=== PATIENT | female | born 1980 | race Caucasian/White ===

== ENCOUNTER 2020-07-01 18:58 | Emergency (ER) | payer BC ==
[~2020-07-01] VITALS: Ht 177.8 cm; Wt 79.5 kg
[2020-07-01] MEDS ORDERED: LACTATED RINGERS 1,000 ML IV ONE (19:30)
[2020-07-01] MEDS ORDERED: PANTOPRAZOLE 40 MG (PROTONIX) VIAL IV ONE (19:30)
[2020-07-01] MEDS ORDERED: fentaNYL INJ 100 MCG/2 ML AMP IVP ONE (19:30)
[2020-07-01] MEDS ORDERED: ONDANSETRON 4 MG/2 ML (SDV) Z0FRAN IVP ONE (19:30)
[2020-07-01 19:32] LABS: BASOPHILS # (AUTO) 0.1 10^3/uL (0.0-0.1); BASOPHILS % (AUTO) 1 % (0-10); EOSINOPHILS # (AUTO) 0.9 10^3/uL (0.0-0.3); EOSINOPHILS % (AUTO) 9 % (0-10); HEMATOCRIT 40 % (35-52); HEMOGLOBIN 13.3 g/dL (11.5-16.0); LYMPHOCYTES # (AUTO) 3.4 10^3/uL (1.0-4.0); LYMPHOCYTES % (AUTO) 33 % (12-44); MEAN CORPUSCULAR HEMOGLOBIN 31 pg (25-34); MEAN CORPUSCULAR HGB CONC 34 g/dL (32-36); MEAN CORPUSCULAR VOLUME 91 fL (80-99); MEAN PLATELET VOLUME 9.4 fL (9.0-12.2); MONOCYTES # (AUTO) 0.7 10^3/uL (0.0-1.0); MONOCYTES % (AUTO) 6 % (0-12); NEUTROPHILS # (AUTO) 5.2 10^3/uL (1.8-7.8); NEUTROPHILS % (AUTO) 51 % (42-75); PLATELET COUNT 315 10^3/uL (130-400); WHITE BLOOD COUNT 10.3 10^3/uL (4.3-11.0)
--- NOTE | 2020-07-01 19:34 | ED Abdominal Pain ---
General Chief Complaint: Abdominal/GI Problems Stated Complaint: ABD PAIN Source of Information: Patient Exam Limitations: No Limitations NPO Since: 1700 (DAVID MURILLO STUDENT) History of Present Illness Date Seen by Provider: July 01, 2020 Time Seen by Provider: 19:15 Initial Comments Pt presented to ED via private conveyance with and daughter at side with complaint of abd pain. She states it started at about 3:30 this afternoon while she was driving. She ate a sandwich at 11AM and some noodles about 2-3hrs prior to arriving, which she subsequently vomited. She denies prior history of similar symptoms. PSH of hysterectomy with unilateral oopherectomy. PMH GERD. States her pain is epigastric, radiates to her back, 8/10, and feels like she's being punched. She has been nauseated with intermittent vomiting since the pain began. She denies other symptoms of chest pain, SOB, fevers, chills. Timing/Duration: 4-6 Hours Severity/Quality: Severe, Aching, Throbbing Location: Epigastric Radiation: Back Activities at Onset: Other (driving) Modifying Factors: Improves With Other (more comfortable when leaning forward) Associated Symptoms: No Chest Pain, No Fever/Chills, No Headache; Nausea/Vomiting (DAVID MURILLO STUDENT) Initial Comments She did have a beer last night and has an occasional drink but no history of pancreatitis. She has a history of kidney stones. She says this feels entirely different. (ISSAC FAGAN) Allergies and Home Medications Allergies Coded Allergies: No Known Drug Allergies (Unverified , 07/01/20) Patient Home Medication List Home Medication List Reviewed: Yes (DAVID MURILLO STUDENT) Home Medication List Reviewed: Yes (ISSAC FAGAN) Review of Systems Review of Systems Constitutional: No chills, No fever EENTM: No Blurred Vision, No Double Vision, No Eye Pain, No Ear Pain Respiratory: Denies Cough, Denies Shortness of Air Cardiovascular: Denies Chest Pain, Denies Edema, Denies Lightheadedness Gastrointestinal: Abdominal Pain; Denies Constipated, Denies Diarrhea; Nausea, Vomiting Genitourinary: Denies Frequency, Denies Hematuria Musculoskeletal: No back pain, No joint pain, No muscle pain Skin: No lesions, No rash Psychiatric/Neurological: Denies Headache, Denies Numbness, Denies Paresthesia, Denies Tingling, Denies Weakness (DAVID MURILLO) Constitutional: No chills, No diaphoresis EENTM: No Blurred Vision, No Double Vision Respiratory: Denies Cough, Denies Shortness of Air Gastrointestinal: Denies Abdomen Distended; Abdominal Pain, Nausea, Vomiting Genitourinary: Denies Burning, Denies Discharge Musculoskeletal: No back pain, No joint pain (ISSAC FAGAN) All Other Systems Reviewed Negative Unless Noted: Yes (DAVID MURILLO) Negative Unless Noted: Yes (ISSAC FAGAN) Past Afldlrd-Jpwvxk-Ichrwe Hx Past Med/Social Hx: Reviewed Nursing Past Med/Soc Hx (DAVID MURILLO) Patient Social History Alcohol Use: Occasionally Uses Alcohol Beverage of Choice: Beer Smoking Status: Current Everyday Smoker Type Used: Cigarettes (1/2ppd for 1 year) Alcohol Use?: Yes (DAVID MURILLO) Physical Exam Vital Signs Vital Signs - First Documented 07/01/20 19:11 Temp 36.5 Pulse 90 Resp 18 B/P (MAP) 121/97 (105) Pulse Ox 96 O2 Delivery Room Air (ISSAC FAGAN) Vital Signs Capillary Refill : (DAVID MURILLO) Height/Weight/BMI Height: '" Weight: lbs. oz. kg; BMI Method: General Appearance: WD/WN, moderate distress HEENT: PERRL/EOMI, normal ENT inspection Neck: non-tender, full range of motion, supple, normal inspection Respiratory: chest non-tender, lungs clear, normal breath sounds, no respiratory distress, no accessory muscle use Cardiovascular: normal peripheral pulses, regular rate, rhythm, no edema, no murmur Peripheral Pulses: 2+ Radial Pulses (R), 2+ Radial Pulses (L) Gastrointestinal: normal bowel sounds, soft; No distended, No guarding, No rebound; tenderness (mild tenderness epigastric) Rectal: deferred Extremities: normal range of motion, non-tender, normal inspection, normal capillary refill Back: normal inspection, no CVA tenderness, no vertebral tenderness Neurologic/Psychiatric: no motor/sensory deficits, alert, normal mood/affect, oriented x 3 Skin: normal color, warm/dry Lymphatic: no adenopathy (LIDIA,DAVID MED STUDENT) General Appearance: WD/WN, mild distress HEENT: PERRL/EOMI, pharynx normal Neck: full range of motion, normal inspection Respiratory: lungs clear, normal breath sounds, no respiratory distress, no accessory muscle use Cardiovascular: normal peripheral pulses, regular rate, rhythm (RYLAN,ISSAC J) Progress/Results/Core Measures Results/Orders Lab Results Laboratory Tests Test 07/01/20 19:15 07/01/20 19:50 Range/Units White Blood Count 10.3 4.3-11.0 10^3/uL Red Blood Count 4.32 3.80-5.11 10^6/uL Hemoglobin 13.3 11.5-16.0 g/dL Hematocrit 40 35-52 % Mean Corpuscular Volume 91 80-99 fL Mean Corpuscular Hemoglobin 31 25-34 pg Mean Corpuscular Hemoglobin Concent 34 32-36 g/dL Red Cell Distribution Width 13.3 10.0-14.5 % Platelet Count 315 130-400 10^3/uL Mean Platelet Volume 9.4 9.0-12.2 fL Immature Granulocyte % (Auto) 0 % Neutrophils (%) (Auto) 51 42-75 % Lymphocytes (%) (Auto) 33 12-44 % Monocytes (%) (Auto) 6 0-12 % Eosinophils (%) (Auto) 9 0-10 % Basophils (%) (Auto) 1 0-10 % Neutrophils # (Auto) 5.2 1.8-7.8 10^3/uL Lymphocytes # (Auto) 3.4 1.0-4.0 10^3/uL Monocytes # (Auto) 0.7 0.0-1.0 10^3/uL Eosinophils # (Auto) 0.9 H 0.0-0.3 10^3/uL Basophils # (Auto) 0.1 0.0-0.1 10^3/uL Immature Granulocyte # (Auto) 0.0 0.0-0.1 10^3/uL Sodium Level 140 135-145 MMOL/L Potassium Level 3.8 3.6-5.0 MMOL/L Chloride Level 104 98-107 MMOL/L Carbon Dioxide Level 25 21-32 MMOL/L Anion Gap 11 5-14 MMOL/L Blood Urea Nitrogen 13 7-18 MG/DL Creatinine 0.85 0.60-1.30 MG/DL Estimat Glomerular Filtration Rate > 60 BUN/Creatinine Ratio 15 Glucose Level 113 H 70-105 MG/DL Calcium Level 8.9 8.5-10.1 MG/DL Corrected Calcium 8.9 8.5-10.1 MG/DL Total Bilirubin 0.2 0.1-1.0 MG/DL Aspartate Amino Transf (AST/SGOT) 19 5-34 U/L Alanine Aminotransferase (ALT/SGPT) 14 0-55 U/L Alkaline Phosphatase 82 40-136 U/L C-Reactive Protein High Sensitivity 0.23 0.00-0.50 MG/DL Total Protein 6.9 6.4-8.2 GM/DL Albumin 4.0 3.2-4.5 GM/DL Lipase 38 8-78 U/L Urine Color YELLOW Urine Clarity CLEAR Urine pH 6.0 5-9 Urine Specific Bonnie <=1.005 1.016-1.022 Urine Protein NEGATIVE NEGATIVE Urine Glucose (UA) NEGATIVE NEGATIVE Urine Ketones NEGATIVE NEGATIVE Urine Nitrite NEGATIVE NEGATIVE Urine Bilirubin NEGATIVE NEGATIVE Urine Urobilinogen 0.2 < = 1.0 MG/DL Urine Leukocyte Esterase NEGATIVE NEGATIVE Urine RBC (Auto) 2+ H NEGATIVE Urine RBC 2-5 H /HPF Urine WBC RARE /HPF Urine Crystals PRESENT H /LPF Urine Amorphous Sediment RARE FRANCIS URATES H /LPF Urine Bacteria TRACE /HPF Urine Casts NONE /LPF Urine Mucus NEGATIVE /LPF Urine Culture Indicated NO (ISSAC FAGAN) My Orders Orders - ISSAC FAGAN Ua Culture If Indicated (07/01/20 19:07) Urine Bedside (07/01/20 19:07) Ondansetron Injection (Zofran Injectio (07/01/20 19:30) Fentanyl Inj (Sublimaze Injection) (07/01/20 19:30) Pantoprazole Injection (Protonix Injecti (07/01/20 19:30) Cbc With Automated Diff (07/01/20 19:24) Comprehensive Metabolic Panel (07/01/20 19:24) Hs C Reactive Protein (07/01/20 19:24) Lipase (07/01/20 19:24) Ed Iv/Invasive Line Start (07/01/20 19:24) Lactated Ringers (Lr 1000 Ml Iv Solution (07/01/20 19:30) Ct Abdomen/Pelvis W (07/01/20 19:24) Iohexol Injection (Omnipaque 350 Mg/Ml 1 (07/01/20 20:15) Received Contrast (Hold Metformin- Contr (07/01/20 20:15) Ns (Ivpb) (Sodium Chloride 0.9% Ivpb Bag (07/01/20 20:15) (ISSAC FAGAN) Medications Given in ED Current Medications Medications Dose Ordered Sig/Zackary Route Start Time Stop Time Status Last Admin Dose Admin Fentanyl Citrate 50 mcg ONCE ONCE IVP 07/01/20 19:30 07/01/20 19:31 DC 07/01/20 19:33 50 MCG Iohexol 100 ml ONCE ONCE IV 07/01/20 20:15 07/01/20 20:16 DC 07/01/20 20:06 99 ML Lactated Ringer's 1,000 ml @ 0 mls/hr Q0M ONCE IV 07/01/20 19:30 07/01/20 19:31 DC 07/01/20 19:34 0 MLS/HR Ondansetron HCl 8 mg ONCE ONCE IVP 07/01/20 19:30 07/01/20 19:31 DC 07/01/20 19:33 8 MG Pantoprazole 40 mg ONCE ONCE IV 07/01/20 19:30 07/01/20 19:31 DC 07/01/20 19:33 40 MG Sodium Chloride 100 ml ONCE ONCE IV 07/01/20 20:15 07/01/20 20:16 DC 07/01/20 20:06 80 ML (ISSAC AFGAN) Vital Signs/I&O 07/01/20 19:11 Temp 36.5 Pulse 90 Resp 18 B/P (MAP) 121/97 (105) Pulse Ox 96 O2 Delivery Room Air (ISSAC FAGAN) Progress Progress Note : Time: 20:41 Progress Note I attest that I saw this patient alongside the medical student and agree with his documented history, physical exam and review of systems except as otherwise noted. 8 of Zofran and 50 of fentanyl later the patient is feeling much better. We got a CT and labs which were largely unrevealing of any acute pathology or surgical emergency. We suggested her that it could be related to peptic ulcer disease, gastritis, sliding hiatal hernia, gallbladder etc. I suggest she change her diet, increase her Protonix to 20 mg twice a day and put her on Carafate. We offered her to follow-up with a local surgeon but she says her insurance is in [place] so she would prefer to see a provider there. We suggest she sees Dr. Otero and have him refer her on to an appropriate place. Return precautions discussed. (ISSAC FAGAN) Diagnostic Imaging Diagonstic Imaging: CT Plain Films/CT/US/NM/MRI: abdomen, pelvis Comments NAME: [facility] REC#: [id number] PT STATUS: REG ER : 1980 PHYSICIAN: ISSAC FAGAN MD ADMIT DATE: 07/01/20/ER Signed Date of Exam:07/01/20 CT ABDOMEN/PELVIS W EXAMINATION: CT abdomen and pelvis with intravenous contrast. TECHNIQUE: Multiple contiguous axial images were obtained through the abdomen and pelvis after the uneventful administration of intravenous contrast. All CT scans use one or more of the following dose optimizing techniques: automated exposure control, MA and/or KvP adjustment based on patient size and exam type or iterative reconstruction. HISTORY: Nausea and vomiting. Epigastric pain. COMPARISON: None available. FINDINGS: The heart is unremarkable. The included lung bases are clear. The liver, spleen, pancreas, adrenal glands, and kidneys have a normal appearance. There is no pathologically enlarged mesenteric or retroperitoneal adenopathy. The bowel loops are nondilated. The appendix is visualized in the right lower quadrant and has a normal appearance. There is no free fluid or free air. No acute osseous abnormalities. Ureters and bladder are grossly normal. There is no free air, loculated collection, or adenopathy in the pelvis. IMPRESSION: 1. No acute abnormalities in the abdomen and pelvis. No bowel obstruction, free fluid, or free air. Dictated by: Dictated on workstation # [id number] Dict: 07/01/202015 Trans: 07/01/202021 [facility] [id number] Interpreted by: STORMY DUARTE DO Electronically signed by: STORMY DUARTE DO 07/01/202021 Reviewed: Reviewed by Me (ISSAC FAGAN) Departure Impression Primary Impression: Epigastric abdominal pain Disposition: HOME, SELF-CARE Condition: Stable Departure-Patient Inst. Decision time for Depature: 20:43 (ISSAC FAGAN) Referrals: FELICIA OTERO DO (PCP/Family) Primary Care Physician Patient Instructions: Gastritis (DC) Add. Discharge Instructions: While we could not find a specific, emergent reason for your epigastric abdominal pain I do suspect it could be related to the lining of your stomach, a sliding hiatal hernia, your gallbladder or other similar problems it might be discovered by a senior accounting clerk or general surgeon doing endoscopy. Plan to prevent this pain from happening again by doubling your Protonix to 20 mg twice a day for the next month. Carafate half an hour before you eat and at bedtime to coat the lining of your stomach for the next 2 weeks. Tums, Maalox, Rolaids, Mylanta etc. as necessary for return pain. Tylenol or ibuprofen as necessary for pain. Hydrocodone as necessary for severe, breakthrough pain. Hydrocodone may cause constipation as well as drowsiness and should not be mixed with alcohol or driving long distances. Call your primary care doctor and follow-up in the next week or 2 to discuss your symptoms and appropriate management and work-up. Return to the ER nearest you promptly if you are experiencing fever or si gnificant pain despite the above mentioned medications. Change your diet to avoid spicy, greasy foods especially dairy. Zofran/ondansetron 1 tablet every 6 hours under the tongue as necessary for nausea and/or vomiting All discharge instructions reviewed with patient and/or family. Voiced understanding. Scripts Ondansetron (Ondansetron Odt) 4 Mg Tab.rapdis 4 MG PO Q6H PRN for NAUSEA/VOMITING, #12 TAB 0 Refills Prov: ISSAC FAGAN 07/01/20 Hydrocodone/Acetaminophen (Hydrocodone-Acetamin 5-325 mg) 1 Each Tablet 1 TAB PO Q4H PRN for PAIN-MODERATE (5-7), #12 TAB 0 Refills Prov: ISSAC FAGAN 07/01/20 Pantoprazole Sodium (Protonix) 20 Mg Tablet.dr 20 MG PO BID for 30 Days, #60 TAB 0 Refills Prov: ISSAC FAGAN 07/01/20 Sucralfate (Carafate) 1 Gm Tablet 1 GM PO QIDACHS for 14 Days, #56 TAB 0 Refills Prov: ISSAC FAGAN 07/01/20 DAVID MURILLO MED STUDENT July 01, 2020 19:34 ISSAC FAGAN July 01, 2020 20:46
[2020-07-01 19:54] LABS: CHLORIDE 104 MMOL/L (98-107); POTASSIUM 3.8 MMOL/L (3.6-5.0); SODIUM 140 MMOL/L (135-145)
[2020-07-01 19:55] LABS: CALCIUM 8.9 MG/DL (8.5-10.1)
[2020-07-01 19:57] LABS: GLUCOSE 113 MG/DL (70-105); TOTAL PROTEIN 6.9 GM/DL (6.4-8.2)
[2020-07-01 19:58] LABS: BILIRUBIN,TOTAL 0.2 MG/DL (0.1-1.0); CARBON DIOXIDE 25 MMOL/L (21-32)
[2020-07-01 20:00] LABS: BILIRUBIN,URINE NEGATIVE (NEGATIVE); CLARITY,URINE CLEAR; COLOR,URINE YELLOW; GLUCOSE, URINE (UA) NEGATIVE (NEGATIVE); KETONES,URINE NEGATIVE (NEGATIVE); LEUKOCYTE ESTERASE ,URINE NEGATIVE (NEGATIVE); NITRITE,URINE NEGATIVE (NEGATIVE); PROTEIN,URINE NEGATIVE (NEGATIVE)
[2020-07-01 20:00] LABS: ALKALINE PHOSPHATASE 82 U/L (40-136); CREATININE SERUM 0.85 MG/DL (0.60-1.30); GFR ESTIMATED > 60
[2020-07-01 20:01] LABS: BUN/CREATININE RATIO 15
[2020-07-01 20:03] LABS: ALANINE AMINOTRANSFERASE 14 U/L (0-55)
[2020-07-01 20:04] LABS: LIPASE 38 U/L (8-78)
[2020-07-01] MEDS ORDERED: NS 100 ML (IVPB) BAG IV ONE (20:15)
[2020-07-01] MEDS ORDERED: HOLD METFORMIN - RECEIVED CONTRAST 20 ML VIAL IV SCH (20:15)
[2020-07-01] MEDS ORDERED: IOHEXOL 350 MG/ML 100 ML (OMNIPAQUE 350) VIAL IV ONE (20:15)
--- NOTE | 2020-07-01 20:22 | Diagnostic Imaging Report ---
EXAMINATION: CT abdomen and pelvis with intravenous contrast. TECHNIQUE: Multiple contiguous axial images were obtained through the abdomen and pelvis after the uneventful administration of intravenous contrast. All CT scans use one or more of the following dose optimizing techniques: automated exposure control, MA and/or KvP adjustment based on patient size and exam type or iterative reconstruction. HISTORY: Nausea and vomiting. Epigastric pain. COMPARISON: None available. FINDINGS: The heart is unremarkable. The included lung bases are clear. The liver, spleen, pancreas, adrenal glands, and kidneys have a normal appearance. There is no pathologically enlarged mesenteric or retroperitoneal adenopathy. The bowel loops are nondilated. The appendix is visualized in the right lower quadrant and has a normal appearance. There is no free fluid or free air. No acute osseous abnormalities. Ureters and bladder are grossly normal. There is no free air, loculated collection, or adenopathy in the pelvis. IMPRESSION: 1. No acute abnormalities in the abdomen and pelvis. No bowel obstruction, free fluid, or free air. Dictated by: Dictated on workstation # [id number]
[2020-07-01 20:25] LABS: WBC,URINE RARE /HPF
[2020-07-01 20:26] LABS: AMORPHOUS SEDIMENT,UR RARE AMOR URATES /LPF; BACTERIA,URINE TRACE /HPF
[2020-07-01] MEDS ORDERED: ACHD5005 PO (20:46)
[2020-07-01] MEDS ORDERED: PANT20TA2 PO (20:46)
[2020-07-01] MEDS ORDERED: SUCR1TAB36 PO (20:46)
[2020-07-01] MEDS ORDERED: ONDA4TAB11 PO (20:48)
[2020-07-01] MEDS ORDERED: RX-ONDANSETRON 4 MG ODT (ZOFRAN) PPK #4 PO STA (20:48)
[2020-07-01 21:00] VITALS: BP 118/96
== END 2020-07-01 21:00 | disposition home or self-care (01) ==
LOC: ER 19:01
DX: R10.13 Epigastric pain (principal); R11.2 Nausea with vomiting, unspecified; F17.210 Nicotine dependence, cigarettes, uncomplicated; Z87.19 Personal history of other diseases of the digestive system; Z87.442 Personal history of urinary calculi
CPT/HCPCS: 36415; 74177; 80053; 81000; 83690; 85025; 86141

== ENCOUNTER 2020-09-26 10:18 | Emergency (ER) | payer BC ==
[~2020-09-26] VITALS: Ht 177.8 cm; Wt 81.6 kg
[~2020-09-26 10:18] MED LIST: ACHD5005 PO; ONDA4TAB11 PO; PANT20TA2 PO; SUCR1TAB36 PO
[2020-09-26] MEDS ORDERED: KETOROLAC 30 MG/ML VIAL IVP ONE (11:30)
[2020-09-26] MEDS ORDERED: LACTATED RINGERS 1,000 ML IV SCH (11:30)
[2020-09-26] MEDS ORDERED: diphenhydrAMINE 50 MG/ML INJ (BENADRYL) IVP ONE (11:30)
[2020-09-26] MEDS ORDERED: PROCHLORPERAZINE 10 MG/2ML INJ (COMPAZINE) IV ONE (11:30)
--- NOTE | 2020-09-26 11:34 | ED Headache ---
General Chief Complaint: Head/Cervical Problems Stated Complaint: MIRGRAINE Nursing Triage Note: PT AMB TO TRIAGE WITH COMPLAINT OF HEADACHE/MIGRAINE SINCE LAST NIGHT. WENT TO URGENT CARE ON TUESDAY FOR MIGRAINE. GIVEN SHOTS AND SUMATRIPTAN. STATES TOOK SUMATRIPTAN BUT DID NOT RELIEVE HEADACHE TODAY. STATES SHE DOES HAVE CONGESTION AND TESTED NEGATIVE FOR COVID ON TUESDAY AT URGENT CARE. Source: patient Exam Limitations: no limitations (CEZAR MOSES APRN) History of Present Illness Date Seen by Provider: Sep 26, 2020 Time Seen by Provider: 11:31 Initial Comments To ER with a left-sided headache that began on Tuesday of this week (today is Tuesday). She was given a couple of injections and a prescription for Imitrex. Initially the pain was alleviated by her injections but she tried the Imitrex today due to worsening headache with photophobia and nausea and does not have any relief. No fevers or chills. She does have some soreness and tightness to the left side of her neck. No fevers or chills. No exposure to ill contacts. She is Covid vaccinated. No history of migraines. She is on Pristiq for anxiety and depression. Timing/Duration: 1 week Severity/Quality: moderate, severe Location: temporal Modifying Factors: worse with exposure to light Associated Symptoms: No confusion, No fever/chills; nausea/vomiting, stiff neck (left sided only); No vision changes, No weakness (CEZAR MOSES APRN) Allergies and Home Medications Allergies Coded Allergies: No Known Drug Allergies (Unverified , 07/01/20) Home Medications Butalb/Acetaminophen/Caffeine 1 Each Tablet, 2 EACH PO Q6H PRN for HEADACHE Prescribed by: CEZAR MOSES on 09/26/20 1240 Hydrocodone/Acetaminophen 1 Each Tablet, 1 TAB PO Q4H PRN for PAIN-MODERATE (5- 7) Prescribed by: ISSAC FAGAN on 07/01/202046 Ondansetron 4 Mg Tab.rapdis, 4 MG PO Q6H PRN for NAUSEA/VOMITING Prescribed by: ISSAC FAGAN on 07/01/202047 Pantoprazole Sodium 20 Mg Tablet.dr, 20 MG PO BID Prescribed by: ISSAC FAGAN on 07/01/202045 Sucralfate 1 Gm Tablet, 1 GM PO QIDACHS Prescribed by: ISSAC FAGAN on 07/01/202045 Patient Home Medication List Home Medication List Reviewed: Yes (CEZAR MOSES APRN) Review of Systems Review of Systems Constitutional: see HPI; No chills, No fever Eyes: No Symptoms Reported Ears, Nose, Mouth, Throat: see HPI, ear pain (left side) Respiratory: no symptoms reported Cardiovascular: no symptoms reported Genitourinary: no symptoms reported Musculoskeletal: no symptoms reported Skin: no symptoms reported Psychiatric/Neurological: See HPI, Headache; Denies Numbness, Denies Paresthesia, Denies Pre-Existing Deficit, Denies Seizure (CEZAR MOSES APRN) Past Wkkryfd-Rkppmh-Mzuvah Hx Patient Social History Tobacco Use?: Yes Tobacco type used: Cigarettes Smoking Status: Current Everyday Smoker Substance use?: No Pt feels they are or have been: No (CEZAR MOSES APRN) Seasonal Allergies Seasonal Allergies: No (CEZAR MOSES APRN) Past Medical History Surgeries: Yes Hysterectomy Respiratory: No Cardiac: No Neurological: No 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 oz. kg; 25.00 BMI Method: General Appearance: WD/WN, no apparent distress HEENT: PERRL/EOMI, normal ENT inspection, TMs normal, pharynx normal Neck: non-tender, full range of motion Cardiovascular: regular rate, rhythm, no murmur Respiratory: normal breath sounds, no respiratory distress, no accessory muscle use Gastrointestinal: normal bowel sounds, non tender, soft Extremities: normal range of motion, non-tender Psychiatric: alert, oriented x 3 Crainal Nerves: normal hearing, normal speech, PERRL Skin: normal color, warm/dry (CEZAR MOSES APRN) Progress/Results/Core Measures Results/Orders Lab Results Laboratory Tests Test 09/26/20 11:23 Range/Units White Blood Count 9.8 4.3-11.0 10^3/uL Red Blood Count 4.91 3.80-5.11 10^6/uL Hemoglobin 14.6 11.5-16.0 g/dL Hematocrit 45 35-52 % Mean Corpuscular Volume 91 80-99 fL Mean Corpuscular Hemoglobin 30 25-34 pg Mean Corpuscular Hemoglobin Concent 33 32-36 g/dL Red Cell Distribution Width 12.5 10.0-14.5 % Platelet Count 328 130-400 10^3/uL Mean Platelet Volume 9.4 9.0-12.2 fL Immature Granulocyte % (Auto) 0 % Neutrophils (%) (Auto) 68 42-75 % Lymphocytes (%) (Auto) 25 12-44 % Monocytes (%) (Auto) 6 0-12 % Eosinophils (%) (Auto) 1 0-10 % Basophils (%) (Auto) 0 0-10 % Neutrophils # (Auto) 6.6 1.8-7.8 10^3/uL Lymphocytes # (Auto) 2.5 1.0-4.0 10^3/uL Monocytes # (Auto) 0.6 0.0-1.0 10^3/uL Eosinophils # (Auto) 0.1 0.0-0.3 10^3/uL Basophils # (Auto) 0.0 0.0-0.1 10^3/uL Immature Granulocyte # (Auto) 0.0 0.0-0.1 10^3/uL Sodium Level 139 135-145 MMOL/L Potassium Level 3.9 3.6-5.0 MMOL/L Chloride Level 104 98-107 MMOL/L Carbon Dioxide Level 23 21-32 MMOL/L Anion Gap 12 5-14 MMOL/L Blood Urea Nitrogen 7 7-18 MG/DL Creatinine 0.92 0.60-1.30 MG/DL Estimat Glomerular Filtration Rate 67 BUN/Creatinine Ratio 8 Glucose Level 105 70-105 MG/DL Calcium Level 9.8 8.5-10.1 MG/DL Corrected Calcium 9.4 8.5-10.1 MG/DL Total Bilirubin 0.4 0.1-1.0 MG/DL Aspartate Amino Transf (AST/SGOT) 16 5-34 U/L Alanine Aminotransferase (ALT/SGPT) 14 0-55 U/L Alkaline Phosphatase 71 40-136 U/L C-Reactive Protein High Sensitivity 0.10 0.00-0.50 MG/DL Total Protein 7.9 6.4-8.2 GM/DL Albumin 4.5 3.2-4.5 GM/DL Serum Test, Qualitative NEGATIVE NEGATIVE (ANTHONY APONTE MD) Vital Signs/I&O 09/26/20 09/26/20 11:10 13:28 Temp 36.9 36.9 Pulse 86 86 Resp 16 16 B/P (MAP) 105/76 (86) 105/76 (86) Pulse Ox 96 96 O2 Delivery Room Air (ANTHONY APONTE MD) Blood Pressure Mean: 86 Departure Communication (Admissions) 1247-some improvement in headache. Significant improvement in nausea at this time. Did a cervical paraspinous injection of lidocaine at C7 1 cm lateral to the spinous process bilaterally injecting 1.5 mils of 1% lidocaine buffered with sodium bicarbonate on each side. We will see if this gives some additional relief. (CEZAR MOSES APRN) Impression Primary Impression: Headache Disposition: HOME, SELF-CARE Condition: Stable Departure-Patient Inst. Decision time for Depature: 12:29 (CEZAR MOSES APRN) Referrals: FELICIA RIA DO (PCP/Family) Primary Care Physician Patient Instructions: Headache, Adult (DC) Scripts Butalb/Acetaminophen/Caffeine (Esgic 50-325-40 mg Tablet) 1 Each Tablet 2 EACH PO Q6H PRN for HEADACHE, #10 TAB Prov: CEZAR MOSES APRN 09/26/20 Work/School Note: Work Release Form Date Seen in the Emergency Department: Sep 26, 2020 Return to Work: Sep 28, 2020 ATTENDING PHYSICIAN NOTE: I was physically present as attending physician in the emergency department during the care of this patient, but I was not directly involved in the decision making or delivery of care for this patient. (ANTHONY APONTE MD) CEZAR MOSES APRN Sep 26, 2020 11:34 ANTHONY APONTE MD Sep 28, 2020 20:28
[2020-09-26 11:35] LABS: BASOPHILS % (AUTO) 0 % (0-10); EOSINOPHILS # (AUTO) 0.1 10^3/uL (0.0-0.3); EOSINOPHILS % (AUTO) 1 % (0-10); HEMATOCRIT 45 % (35-52); HEMOGLOBIN 14.6 g/dL (11.5-16.0); LYMPHOCYTES # (AUTO) 2.5 10^3/uL (1.0-4.0); LYMPHOCYTES % (AUTO) 25 % (12-44); MEAN CORPUSCULAR HEMOGLOBIN 30 pg (25-34); MEAN CORPUSCULAR HGB CONC 33 g/dL (32-36); MEAN CORPUSCULAR VOLUME 91 fL (80-99); MEAN PLATELET VOLUME 9.4 fL (9.0-12.2); MONOCYTES # (AUTO) 0.6 10^3/uL (0.0-1.0); MONOCYTES % (AUTO) 6 % (0-12); NEUTROPHILS # (AUTO) 6.6 10^3/uL (1.8-7.8); NEUTROPHILS % (AUTO) 68 % (42-75); PLATELET COUNT 328 10^3/uL (130-400); WHITE BLOOD COUNT 9.8 10^3/uL (4.3-11.0)
[2020-09-26 11:44] LABS: ALBUMIN 4.5 GM/DL (3.2-4.5); POTASSIUM 3.9 MMOL/L (3.6-5.0)
[2020-09-26 11:46] LABS: CALCIUM 9.8 MG/DL (8.5-10.1)
[2020-09-26 11:47] LABS: TOTAL PROTEIN 7.9 GM/DL (6.4-8.2)
[2020-09-26 11:49] LABS: BILIRUBIN,TOTAL 0.4 MG/DL (0.1-1.0)
[2020-09-26 11:51] LABS: CREATININE SERUM 0.92 MG/DL (0.60-1.30)
--- NOTE | 2020-09-26 12:25 | Diagnostic Imaging Report ---
PROCEDURE: CT head without contrast. TECHNIQUE: Multiple contiguous axial images were obtained through the brain without the use of intravenous contrast. Auto Exposure Controls were utilized during the CT exam to meet ALARA standards for radiation dose reduction. INDICATION: Headache. Migraine. COMPARISON: None. FINDINGS: Ventricles are normal in size, shape and position. There is no midline shift or mass effect. There is no hemorrhage or evidence of acute ischemia. No extra axial fluid collection or mass is seen. The bony calvarium is normal. Paranasal sinuses and mastoids are clear IMPRESSION: Negative CT head. Dictated by: Dictated on workstation # [id number]
[2020-09-26] MEDS ORDERED: BUTA-249 PO (12:40)
[2020-09-26] MEDS ORDERED: LIDOCAINE 1% INJ 20 ML 20 ML VIAL ONE (12:40)
[2020-09-26] MEDS ORDERED: LIDOCAINE 1% INJ 20 ML 20 ML VIAL INJ ONE (12:45)
[2020-09-26 13:28] VITALS: BP 105/76
== END 2020-09-26 13:28 | disposition home or self-care (01) ==
LOC: EDUNIT# 10:18 → ER 10:20
DX: R51.9 Headache, unspecified (principal); K21.9 Gastro-esophageal reflux disease without esophagitis; F41.9 Anxiety disorder, unspecified; F32.9 Major depressive disorder, single episode, unspecified; F17.210 Nicotine dependence, cigarettes, uncomplicated; Z79.899 Other long term (current) drug therapy
CPT/HCPCS: 36415; 70450; 80053; 84703; 85025; 86141

== ENCOUNTER 2021-05-07 21:48 | Emergency (ER) | payer BC, OTHER ==
[~2021-05-07 21:48] MED LIST changes: +BUTA-249 PO
[2021-05-07] MEDS ORDERED: morphine INJ 10 MG/ML 1ML (SYR OR VIAL) IVP STA (22:45)
[2021-05-07] MEDS ORDERED: ONDANSETRON 4 MG/2 ML (SDV) Z0FRAN IVP ONE (22:45)
[2021-05-07] MEDS ORDERED: KETOROLAC 30 MG/ML VIAL IVP ONE (22:45)
[2021-05-07 22:52] LABS: BASOPHILS % (AUTO) 0 % (0-10); EOSINOPHILS # (AUTO) 0.1 10^3/uL (0.0-0.3); EOSINOPHILS % (AUTO) 0 % (0-10); HEMATOCRIT 41 % (35-52); HEMOGLOBIN 13.8 g/dL (11.5-16.0); LYMPHOCYTES # (AUTO) 1.6 10^3/uL (1.0-4.0); LYMPHOCYTES % (AUTO) 10 % (12-44); MEAN CORPUSCULAR HEMOGLOBIN 31 pg (25-34); MEAN CORPUSCULAR HGB CONC 34 g/dL (32-36); MEAN CORPUSCULAR VOLUME 89 fL (80-99); MEAN PLATELET VOLUME 9.5 fL (9.0-12.2); MONOCYTES # (AUTO) 0.8 10^3/uL (0.0-1.0); MONOCYTES % (AUTO) 5 % (0-12); NEUTROPHILS # (AUTO) 13.8 10^3/uL (1.8-7.8); NEUTROPHILS % (AUTO) 84 % (42-75); PLATELET COUNT 338 10^3/uL (130-400); WHITE BLOOD COUNT 16.3 10^3/uL (4.3-11.0)
[2021-05-07 23:04] LABS: INR 0.8 (0.8-1.4); PROTHROMBIN TIME PATIENT 11.9 SEC (12.2-14.7)
[2021-05-07 23:05] LABS: ALBUMIN 4.2 GM/DL (3.2-4.5)
[2021-05-07 23:06] LABS: POTASSIUM 4.2 MMOL/L (3.6-5.0)
[2021-05-07 23:07] LABS: CALCIUM 9.2 MG/DL (8.5-10.1)
[2021-05-07 23:08] LABS: TOTAL PROTEIN 7.5 GM/DL (6.4-8.2)
[2021-05-07 23:10] LABS: BILIRUBIN,TOTAL 0.3 MG/DL (0.1-1.0)
[2021-05-07 23:12] LABS: CREATININE SERUM 0.9 MG/DL (0.60-1.30)
--- NOTE | 2021-05-07 23:27 | ED Abdominal Pain ---
General Chief Complaint: Abdominal/GI Problems Stated Complaint: LOWER GI, BLOOD, ABD PAIN, N Source of Information: Patient Exam Limitations: No Limitations History of Present Illness Date Seen by Provider: May 07, 2021 Time Seen by Provider: 21:52 Initial Comments 40-year-old female with no pertinent past medical history coming in due to lower abdominal pain that started a couple hours ago. It sharp, severe, intermittent but lately more constant. Has not taken anything for it as of yet. Has some nausea but no vomiting. Has had a couple stools today with bright red blood mixed in with her regular stool which is unusual for her, and this started around the same time. Does not take any blood thinners or aspirin. She has had a hysterectomy and a couple C-sections but no other abdominal surgeries. She is otherwise denying any chest pain, shortness of breath, fever, diarrhea, weakness, numbness, rash, vaginal discharge, dysuria, flank pain, or any other concerns Allergies and Home Medications Allergies Coded Allergies: No Known Drug Allergies (Unverified , 07/01/20) Patient Home Medication List Home Medication List Reviewed: Yes Butalb/Acetaminophen/Caffeine (Esgic 50-325-40 mg Tablet) 1 Each Tablet, 2 EACH PO Q6H PRN for HEADACHE Prescribed by: CEZAR MOSES on 09/26/20 1240 Ciprofloxacin HCl (Ciprofloxacin HCl) 500 Mg Tablet, 500 MG PO BID Prescribed by: ANASTASIA GODDARD on 05/08/2142 Hydrocodone/Acetaminophen (Hydrocodone-Acetamin 5-325 mg) 1 Each Tablet, 1 TAB PO Q4H PRN for PAIN-MODERATE (5-7) Prescribed by: ISSAC FAGAN on 07/01/202046 Metronidazole (Metronidazole) 500 Mg Tablet, 500 MG PO Q8H Prescribed by: ANASTASIA GODDARD on 05/08/2142 Ondansetron (Ondansetron Odt) 4 Mg Tab.rapdis, 4 MG PO Q6H PRN for NAUSEA /VOMITING Prescribed by: ISSAC FAGAN on 07/01/202047 Oxycodone HCl (Oxycodone HCl) 5 Mg Tablet, 5 MG PO Q6H PRN for PAIN-SEVERE (8- 10) Prescribed by: ANASTASIA GODDARD on 05/08/2142 Pantoprazole Sodium (Protonix) 20 Mg Tablet.dr, 20 MG PO BID Prescribed by: ISSAC FAGAN on 07/01/202045 Sucralfate (Carafate) 1 Gm Tablet, 1 GM PO QIDACHS Prescribed by: ISSAC FAGAN on 07/01/202045 Review of Systems Review of Systems Constitutional: No chills, No fever EENTM: No Blurred Vision Respiratory: Denies Cough Cardiovascular: Denies Chest Pain Gastrointestinal: Abdominal Pain; Denies Diarrhea; Nausea, Vomiting Genitourinary: No Symptoms Reported Musculoskeletal: no symptoms reported Skin: no symptoms reported Psychiatric/Neurological: No Symptoms Reported Endocrine: No Symptoms Reported Hematologic/Lymphatic: No Symptoms Reported All Other Systems Reviewed Negative Unless Noted: Yes Past Jeibpfp-Htpyfm-Vdrdth Hx Patient Social History Tobacco Use?: No Use of E-Cig and/or Vaping dev: Yes E-Cig or Vaping type used: Nicotine Use of E-Cig and/or Vaping Juan A: Current Everyday User Substance use?: No Alcohol Use?: No Pt feels they are or have been: No Immunizations Up To Date First/Initial COVID19 Vaccinat: 2020 Second COVID19 Vaccination Salomon: 2020 Seasonal Allergies Seasonal Allergies: No Past Medical History Surgery/Hospitalization HX: ANXIETY, GERD Surgeries: Yes Hysterectomy Respiratory: No Cardiac: No 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 oz. kg; 25.00 BMI Method: General Appearance: WD/WN, moderate distress HEENT: PERRL/EOMI, normal ENT inspection, pharynx normal Neck: non-tender, full range of motion, supple, normal inspection Respiratory: chest non-tender, lungs clear, normal breath sounds, no respiratory distress, no accessory muscle use Cardiovascular: regular rate, rhythm, no edema, no murmur Gastrointestinal: normal bowel sounds, soft; No distended, No guarding, No rebound; tenderness Rectal: normal exam, normal rectal tone, heme negative stool, other (small external hemorrhoid that is not currently bleeding, brown stool) Extremities: normal range of motion, non-tender, normal inspection, no pedal ed braulio, no calf tenderness, normal capillary refill Back: normal inspection, no CVA tenderness, no vertebral tenderness Neurologic/Psychiatric: no motor/sensory deficits, alert, normal mood/affect Skin: normal color, warm/dry Lymphatic: no adenopathy Progress/Results/Core Measures Results/Orders Lab Results Laboratory Tests Test 05/07/21 22:40 05/07/21 23:45 Range/Units White Blood Count 16.3 H 4.3-11.0 10^3/uL Red Blood Count 4.53 3.80-5.11 10^6/uL Hemoglobin 13.8 11.5-16.0 g/dL Hematocrit 41 35-52 % Mean Corpuscular Volume 89 80-99 fL Mean Corpuscular Hemoglobin 31 25-34 pg Mean Corpuscular Hemoglobin Concent 34 32-36 g/dL Red Cell Distribution Width 12.4 10.0-14.5 % Platelet Count 338 130-400 10^3/uL Mean Platelet Volume 9.5 9.0-12.2 fL Immature Granulocyte % (Auto) 1 % Neutrophils (%) (Auto) 84 H 42-75 % Lymphocytes (%) (Auto) 10 L 12-44 % Monocytes (%) (Auto) 5 0-12 % Eosinophils (%) (Auto) 0 0-10 % Basophils (%) (Auto) 0 0-10 % Neutrophils # (Auto) 13.8 H 1.8-7.8 10^3/uL Lymphocytes # (Auto) 1.6 1.0-4.0 10^3/uL Monocytes # (Auto) 0.8 0.0-1.0 10^3/uL Eosinophils # (Auto) 0.1 0.0-0.3 10^3/uL Basophils # (Auto) 0.0 0.0-0.1 10^3/uL Immature Granulocyte # (Auto) 0.1 0.0-0.1 10^3/uL Neutrophils % (Manual) 71 % Lymphocytes % (Manual) 17 % Monocytes % (Manual) 5 % Band Neutrophils 7 % Blood Morphology Comment NORMAL Prothrombin Time 11.9 L 12.2-14.7 SEC INR Comment 0.8 0.8-1.4 Activated Partial Thromboplast Time 24 24-35 SEC Sodium Level 138 135-145 MMOL/L Potassium Level 4.2 3.6-5.0 MMOL/L Chloride Level 104 98-107 MMOL/L Carbon Dioxide Level 18 L 21-32 MMOL/L Anion Gap 16 H 5-14 MMOL/L Blood Urea Nitrogen 12 7-18 MG/DL Creatinine 0.90 0.60-1.30 MG/DL Estimat Glomerular Filtration Rate 82 BUN/Creatinine Ratio 13 Glucose Level 172 H 70-105 MG/DL Calcium Level 9.2 8.5-10.1 MG/DL Corrected Calcium 9.0 8.5-10.1 MG/DL Total Bilirubin 0.3 0.1-1.0 MG/DL Aspartate Amino Transf (AST/SGOT) 21 5-34 U/L Alanine Aminotransferase (ALT/SGPT) 16 0-55 U/L Alkaline Phosphatase 68 40-136 U/L Total Protein 7.5 6.4-8.2 GM/DL Albumin 4.2 3.2-4.5 GM/DL Lipase 50 8-78 U/L Urine Color YELLOW Urine Clarity CLEAR Urine pH 5.5 5-9 Urine Specific Eldridge 1.010 L 1.016-1.022 Urine Protein NEGATIVE NEGATIVE Urine Glucose (UA) NEGATIVE NEGATIVE Urine Ketones NEGATIVE NEGATIVE Urine Nitrite NEGATIVE NEGATIVE Urine Bilirubin NEGATIVE NEGATIVE Urine Urobilinogen 0.2 < = 1.0 MG/DL Urine Leukocyte Esterase NEGATIVE NEGATIVE Urine RBC (Auto) TRACE-I H NEGATIVE Urine RBC RARE /HPF Urine WBC NONE /HPF Urine Squamous Epithelial Cells 5-10 /HPF Urine Crystals NONE /LPF Urine Bacteria NEGATIVE /HPF Urine Casts NONE /LPF Urine Mucus NEGATIVE /LPF Urine Culture Indicated NO My Orders Orders - ANASTASIA GODDARD MD Cbc With Automated Diff (05/07/21 22:45) Comprehensive Metabolic Panel (05/07/21 22:45) Lipase (05/07/21 22:45) Ua Culture If Indicated (05/07/21 22:45) Ct Abdomen/Pelvis W (05/07/21 22:45) Ketorolac Injection (Toradol Injection) (05/07/21 22:45) Morphine Injection (Morphine Injection (05/07/21 22:45) Ondansetron Injection (Zofran Injectio (05/07/21 22:45) Protime With Inr (05/07/21 22:47) Partial Thromboplastin Time (05/07/21 22:47) Manual Differential (05/07/21 22:40) Iohexol Injection (Omnipaque 350 Mg/Ml 1 (05/07/21 23:45) Received Contrast (Hold Metformin- Contr (05/07/21 23:45) Ns (Ivpb) (Sodium Chloride 0.9% Ivpb Bag (05/07/21 23:45) Morphine Injection (Morphine Injection (05/08/21 00:00) Ciprofloxacin Tablet (Cipro Tablet) (05/08/21 00:37) Metronidazole Tablet (Flagyl Tablet) (05/08/21 00:45) Medications Given in ED Current Medications Medications Dose Ordered Sig/Zackary Route Start Time Stop Time Status Last Admin Dose Admin Iohexol 100 ml ONCE ONCE IV 05/07/21 23:45 05/07/21 23:46 DC 05/07/21 23:44 100 ML Ketorolac Tromethamine 15 mg ONCE ONCE IVP 05/07/21 22:45 05/07/21 22:48 DC 05/07/21 22:54 15 MG Ondansetron HCl 4 mg ONCE ONCE IVP 05/07/21 22:45 05/07/21 22:48 DC 05/07/21 22:54 4 MG Sodium Chloride 100 ml ONCE ONCE IV 05/07/21 23:45 05/07/21 23:46 DC 05/07/21 23:44 80 ML Vital Signs/I&O 05/07/21 22:32 Temp 37.0 Pulse 73 Resp 18 B/P (MAP) 100/74 (83) Progress Progress Note : Progress Note 40-year-old female with above history coming in due to abdominal pain, nausea, and bright red blood in her stool. ABCs were intact and vitals were stable on presentation. She was in significant pain on arrival. An IV was placed and she was given morphine and Toradol for her pain. She was given Zofran for nausea. Other than the lower abdominal tenderness with no signs of peritonitis, her rectal exam was reassuring including brown stool and no blood. She does have a small external hemorrhoid which is possible that it produced a small amount of blood that was mixed in with her stool earlier. Labs with a small leukocytosis but otherwise unremarkable. CT abdomen pelvis with sigmoid colitis. She was given Cipro and Flagyl. I will have her follow- up with her PCP as an outpatient. She was sent home in stable condition with strict return precautions. Departure Impression Primary Impression: Colitis Disposition: HOME, SELF-CARE Condition: Stable Departure-Patient Inst. Decision time for Depature: 00:41 Referrals: FELICIA RAI DO (PCP/Family) Primary Care Physician Patient Instructions: Colitis (DC) Add. Discharge Instructions: You have colitis on your CT scan which is essentially an infection of your large intestine close to your anus which can cause bleeding. I have started you on some antibiotics which she will take for the next week. Follow-up with your regular doctor if things are not improving. He may need a colonoscopy in the near future if you have consistent pain or consistent blood in your stools. Take ibuprofen and/or tylenol for pain. If you have severe pain on top of this then take the oxycodone. Scripts Oxycodone HCl (Oxycodone HCl) 5 Mg Tablet 5 MG PO Q6H PRN for PAIN-SEVERE (8-10) for 3 Days, #12 TAB Prov: ANASTASIA GODDARD MD 05/08/21 Metronidazole (Metronidazole) 500 Mg Tablet 500 MG PO Q8H for 7 Days, #21 TAB Prov: ANASTASIA GODDARD MD 05/08/21 Ciprofloxacin HCl (Ciprofloxacin HCl) 500 Mg Tablet 500 MG PO BID for 7 Days, #14 TAB Prov: ANASTASIA GODDARD MD 05/08/21 Work/School Note: Work Release Form Date Seen in the Emergency Department: May 08, 2021 Return to Work: May 09, 2021 Restrictions: No Restrictions ANASTASIA GODDARD MD May 07, 2021 23:27
[2021-05-07] MEDS ORDERED: IOHEXOL 350 MG/ML 100 ML (OMNIPAQUE 350) VIAL IV ONE (23:45)
[2021-05-07] MEDS ORDERED: HOLD METFORMIN - RECEIVED CONTRAST 20 ML VIAL IV SCH (23:45)
[2021-05-07] MEDS ORDERED: NS 100 ML (IVPB) BAG IV ONE (23:45)
[2021-05-07 23:47] LABS: BAND NEUTROPHILS 7 %; LYMPHOCYTES % (MANUAL) 17 %; MONOCYTES % (MANUAL) 5 %; NEUTROPHILS % (MANUAL) 71 %; RBC MORPH NORMAL
[2021-05-07 23:56] LABS: BILIRUBIN,URINE NEGATIVE (NEGATIVE); CLARITY,URINE CLEAR; COLOR,URINE YELLOW; GLUCOSE, URINE (UA) NEGATIVE (NEGATIVE); KETONES,URINE NEGATIVE (NEGATIVE); LEUKOCYTE ESTERASE ,URINE NEGATIVE (NEGATIVE); NITRITE,URINE NEGATIVE (NEGATIVE); PH,URINE 5.5 (5-9); PROTEIN,URINE NEGATIVE (NEGATIVE)
[2021-05-08] MEDS ORDERED: morphine INJ 10 MG/ML 1ML (SYR OR VIAL) IVP STA
[2021-05-08 00:08] LABS: BACTERIA,URINE NEGATIVE /HPF; RBC,URINE RARE /HPF
[2021-05-08] MEDS ORDERED: CIPROFLOXACIN 500 MG (CIPRO) TABLET PO STA (00:37)
[2021-05-08] MEDS ORDERED: CIPR500T5 PO (00:43)
[2021-05-08] MEDS ORDERED: METR-145 PO (00:43)
[2021-05-08] MEDS ORDERED: OXYC5TAB PO (00:43)
[2021-05-08] MEDS ORDERED: metroNIDAZOLE 500 MG (FLAGYL) TAB PO ONE (00:45)
[2021-05-08 01:01] VITALS: BP 130/87
--- NOTE | 2021-05-08 07:20 | Diagnostic Imaging Report ---
PROCEDURE: CT abdomen and pelvis with contrast. TECHNIQUE: Multiple contiguous axial images were obtained through the abdomen and pelvis after administration of intravenous contrast. Auto Exposure Controls were utilized during the CT exam to meet ALARA standards for radiation dose reduction. All CT scans use one or more of the following dose optimizing techniques: automated exposure control, MA and/or KvP adjustment based on patient size and exam type or iterative reconstruction. INDICATION: Lower abdominal pain with hematochezia. FINDINGS: Good opacification of the aorta and abdominal vessels and organs following IV contrast. Vessels appear normal. Liver, gallbladder and bile ducts are normal. Pancreas and spleen are normal. Adrenal glands and kidneys are normal. There is fluid-filled stomach and small bowel. The appendix is normal. The colon shows normal stool and gas pattern throughout the ascending and transverse colon. There is spasm of the colon from the splenic flexure to the rectum. There is mild mesenteric stranding along this area as well. Pelvis shows absence of the uterus. There are no pelvic masses. Bladder appears normal. There is no intra-abdominal adenopathy of pathologic size. There is no free air or free fluid. IMPRESSION: Findings are consistent with colitis involving the descending and sigmoid colon. Fluid-filled small bowel consistent with mild ileus. These findings are in agreement with the preliminary report. Dictated by: Dictated on workstation # [id number]
== END 2021-05-08 01:02 | disposition home or self-care (01) ==
LOC: EDUNIT# 21:48 → ER 21:52
DX: K52.9 Noninfective gastroenteritis and colitis, unspecified (principal); F17.290 Nicotine dependence, other tobacco product, uncomplicated
CPT/HCPCS: 36415; 74177; 80053; 81000; 83690; 85007; 85027; 85610; 85730

== ENCOUNTER 2022-09-06 11:53 | Emergency (ER) | payer OTHER, BC ==
[~2022-09-06] VITALS: Ht 175.2 cm; Wt 86.1 kg
[~2022-09-06 11:53] MED LIST changes: +CIPR500T5 PO; +METR-145 PO; +OXYC5TAB PO
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
[2022-09-06] MEDS ORDERED: KETOROLAC 30 MG/ML VIAL IM ONE (12:30)
[2022-09-06] MEDS ORDERED: ORPHENADRINE 60 MG/2 ML (NORFLEX) AMP (ED ONLY) IM ONE (12:30)
--- NOTE | 2022-09-06 12:53 | Diagnostic Imaging Report ---
CHEST PA/LAT (2 VIEW) Indication: Left posterior rib pain. Comparison: None available. Findings: No pulmonary mass or consolidation. No pleural effusion or pneumothorax. Normal heart size and mediastinal contours. No displaced fracture in the visible ribs. Impression: No acute cardiopulmonary process. Dictated by: Dictated on workstation # [id number]
[2022-09-06] MEDS ORDERED: LIDO700A45 TP (12:57)
[2022-09-06] MEDS ORDERED: NAPR-915 PO (12:57)
[2022-09-06] MEDS ORDERED: CYCL10TA25 PO (12:57)
[2022-09-06 13:04] VITALS: BP 118/78
== END 2022-09-06 13:04 | disposition home or self-care (01) ==
LOC: EDUNIT# 11:53 → ER 11:57
DX: S23.3XXA Sprain of ligaments of thoracic spine, initial encounter (principal); F17.210 Nicotine dependence, cigarettes, uncomplicated; V89.2XXA Person injured in unspecified motor-vehicle accident, traffic, initial encounter; Y92.410 Unspecified street and highway as the place of occurrence of the external cause
CPT/HCPCS: 71046